=== PATIENT | male | born 1995 | race Caucasian/White ===

== ENCOUNTER 2018-04-07 17:51 | Emergency (ER) | payer OTHER ==
[2018-04-07] MEDS: NAPROXEN 250 MG TAB PO (19:50)
== END 2018-04-07 19:55 | disposition home or self-care (01) ==
LOC: M ED 17:51
DX: G56.21 Lesion of ulnar nerve, right upper limb (principal); Z88.2 Allergy status to sulfonamides
CPT/HCPCS: 99282

== ENCOUNTER 2022-03-12 18:46 | Emergency (ER) | payer OTHER ==
[~2022-03-12] VITALS: Ht 177.8 cm; Wt 103.3 kg
[~2022-03-12 18:46] MED LIST: AMOX500T PO; NAPR-837 PO
[2022-03-12 18:47] VITALS: BP 156/78
[2022-03-12] MEDS ORDERED: ACETAMINOPHEN TAB 650MG DOSE (2X325MG) PO ONE (23:15)
[2022-03-13 00:09] LABS: RSV AMPLIFICATION NEGATIVE (NEGATIVE)
[2022-03-13] MEDS ORDERED: KETOROLAC TROMETHAMINE 10 MG TAB PO ONE (01:10)
[2022-03-13] MEDS ORDERED: ONDA4TAB6 PO (01:11)
== END 2022-03-13 01:22 | disposition home or self-care (01) ==
LOC: M ED 18:46
DX: R50.9 Fever, unspecified (principal); R19.7 Diarrhea, unspecified; R11.2 Nausea with vomiting, unspecified; B34.9 Viral infection, unspecified